=== PATIENT | female | born 1985 | race Caucasian/White ===

== ENCOUNTER 2018-03-09 19:37 | Emergency (ER) | payer OTHER ==
[~2018-03-09] VITALS: Ht 149.9 cm; Wt 54.4 kg
[~2018-03-09 19:37] MED LIST: CIPRO500 MG PO; NAPROSYN500 MG PO; NOHOMEMEDICATIONS; NORCO 5-325 TA1 EACH PO; PEPCID40 MG PO; PERCOCET PO; POTASSIUM20 PO
[2018-03-09] MEDS ORDERED: TORADOL 10 MG T10 MG PO (21:27)
[2018-03-09 21:50] VITALS: BP 154/107
== END 2018-03-09 22:00 | disposition home or self-care (01) ==
LOC: M.ERS 19:37
DX: S05.11XA Contusion of eyeball and orbital tissues, right eye, initial encounter (principal); V49.59XA Passenger injured in collision with other motor vehicles in traffic accident, initial encounter; Y93.I9 Activity, other involving external motion; Y92.89 Other specified places as the place of occurrence of the external cause; Y99.8 Other external cause status